=== PATIENT | male | born 1965 | race Caucasian/White ===

== ENCOUNTER → 2017-04-28 | Outpatient (CLI) | payer OTHER ==
--- NOTE | 2017-04-28 12:30 | DIAGNOSTIC IMAGING REPORT ---
EXTREMITY NONVASCULAR LIMITED CLINICAL HISTORY: 51 years-old Male presenting with LEFT GROIN PAIN. TECHNIQUE: Real-time grayscale ultrasound imaging of the left groin was performed. COMPARISON: None. FINDINGS: Apparent isoechoic soft tissue in the region of the left inguinal canal measuring 8 mm in thickness. Upon compression, this abnormality appear to retract into the peritoneal cavity. No surrounding fluid or adjacent bowel. Few regional benign appearing lymph nodes. IMPRESSION: 1. Possible small fat-containing left inguinal hernia. Electronically signed by: Yoni Wong M.D. 04/28/2017 12:28 PM Dictated Date/Time: 04/28/2017 12:26 PM
== END | disposition home or self-care (01) ==
LOC: C.ULTR 12:04
PROVIDERS: ATTEND Family Medicine
DX: R10.30 Lower abdominal pain, unspecified (principal)

== ENCOUNTER 2020-12-24 05:10 | Observation (INO) ==
--- NOTE | 2020-12-04 10:15 | PAT Medication Instructions ---
Medication Instructions Date of Service December 04, 2020 Home Medications allopurinol 100 mg PO QAM diclofenac sodium 75 mg PO BID PRN multivitamin 1 tab PO QAM ASK your surgeon for instructions diclofenac sodium 75 mg PO BID PRN DO NOT take the morning of surgery multivitamin 1 tab PO QAM Take morning of surgery With a small sip of water, OTHERWISE NOTHING TO EAT OR DRINK AFTER MIDNIGHT: allopurinol 100 mg PO QAM Other Notes If you have any questions please call us at [phone] or [phone] or [phone] or [phone]
--- NOTE | 2020-12-04 15:23 | Anesthesiology Consultation ---
Date of Service December 04, 2020 Assessment & Plan (1) Encounter for pre-operative examination: COVID Status: As of 12/04 assessment, patient denies travel to endemic area, known exposure/sick contacts, or symptoms of COVID19. Patient instructed that they and their household members must follow strict social distancing guidelines, wear a mask in public and avoid travel/events/gatherings for 14 days prior to surgery. Preoperative COVID19 testing to be completed prior to surgery per surgeon's arrangements (12/17). Patient made aware to self-isolate as much as possible between COVID testing and surgery. Chart Review Chart Review: Acceptable Risk for Surgery (pending surgeon ordered pcp clearance) and Patient seen in Pre Admission Testing Teaching & Discussion Instructed NPO after midnight before surgery, except medications with 15 cc of water. Medication instructions provided according to the PAT guidelines. History Surgery Operation Date: 12/24/20 07:15 Proposed Procedures p Right Total Hip Arthroplasty - Yoni Florian MD Height/Weight Height: 6 ft 1 in Weight: 91.5 kg Allergies Allergy/AdvReac Type Severity Reaction Status Date / Time No Known Allergies Allergy Unverified 09/28/20 11:44 Medications Home Medications Medication Instructions Recorded Confirmed Last Taken allopurinol 100 mg PO QAM 09/28/20 11/24/20 Unknown diclofenac sodium 75 mg PO BID PRN 09/28/20 11/24/20 Unknown multivitamin 1 tab PO QAM 09/28/20 11/24/20 Unknown Past Medical History Medical History Hx of gout Osteoarthritis Exercise / Class Metabolic Activity II 4-5 Yardwork/Stairs/Walk up hill Past Family History Family History Other No family history of adverse response to anesthesia Past Surgical History Surgical History History of colonoscopy History of open reduction and internal fixation (ORIF) procedure right ankle x2 History of reduction of open fracture left thumb Past Anesthesia History No Hx of Anesthesia Complications and No Family Hx of Anesthesia Complications History of PONV No Hx of PONV and No Hx of Motion Sickness Social History Smoking Status: Never smoker tobacco type: smokeless tobacco Do You Dip or Chew Tobacco: Yes (1 can/1 week (advised)) Hx Alcohol Use: Yes Alcohol type: beer and wine alcohol intake frequency: 0-2 drinks per day (depends on the day, sometimes 5 drinks sometimes none) Hx Substance Use: No substance use type: does not use Review of Systems Pt denies any recent chest pain, shortness of breath, palpitations, cough, fever, URI, or uncontrolled acid reflux. Physical Exam Vital Signs BP: 149/95 P: 91bpm SPO2: 98% RA T: 98.9 F R: 15 ENMT Mouth: no dental restorations, no chipped teeth and no loose teeth Thyromental Distance: > or= 3.5 Finger Breadths (3.5) Mallampati Class: IV Neck + facial hair (short goatee); neck extension not limited Respiratory normal respiratory effort, lungs clear to auscultation Cardiovascular RRR, no murmur, no edema Testing Laboratory Results Blood Type O Negative 12/04/20 15:41 Antibody Screen NEGATIVE 12/04/20 15:41 12/04/20 WBC: 8.80 H/H: 15.5/42.7 PLATELETS: 170 SODIUM: 134 POTASSIUM: 4.1 CHLORIDE: 101 CO2: 27 BUN: 9 CREATININE: 0.95 GLUCOSE: 96 PT: 10.2 INR: 1.0 A1C: 5.2% UA: WNL Electrocardiogram Date: 12/04/20 Findings: + NSR @ (88bpm) RBBB.
--- NOTE | 2020-12-07 14:15 | History & Physical Report ---
Date of Service December 07, 2020 Assessment & Plan Admission and Anticipated Discharge Date Admission Date: PRE-OP Diagnosis: Right hip osteoarthritis Planned Procedure: Right total hip arthroplasty Plan: Patient is scheduled to undergo this procedure at the [facility] on December 24, [address] Yoni Florian. Risks and complications of the procedure such as: Infection, bleeding, pain, scarring, nerve blood vessel damage, weakness, wound problems, stiffness, incomplete relief of symptoms, hardware failure, hardware loosening, wear, fracture, tendon or ligament injury, dislocation, leg length inequality, blood clots, embolism, heart attack, stroke and were explained to the patient at his visit on December [address] Florian. Informed consent from procedure was obtained. Patient also understands risks of proceeding with surgical intervention during the COVID-19 pandemic. Currently he is asymptomatic and understands that he will need to be tested 7 days prior to the surgery. We will need to obtain preoperative medical clearance from the patient's primary care provider Dr. Jerez. Patient states he has an appointment with him on December 07. Patient is scheduled to meet with anesthesia at the hospital today, and while there he will obtain a CBC with differential, complete metabolic panel, PT/INR, blood type and screen, urinalysis, urine culture and sensitivity, EKG, hemoglobin A1c and a nasal culture for MRSA. Advised the patient that he will be provided with prescriptions for a pain relieving agent, and anti-inflammatory and a blood thinning products upon discharge from the hospital. During today's visit we discussed discharge planning, use of antibiotics after joint replacement surgery, lectures offered by [facility] via Zoom in regards to joint replacement, items that he will need to purchase prior to the procedure such as a hip kit, raised toilet seat and a walker. Patient states that he has all of these things because one of his friends recently underwent a hip replacement surgery and gave him all of his stuff. I provided the patient with paperwork to obtain a handicap placard for his vehicle. He states that he plans on doing in-home physical therapy for the first 2 weeks postoperatively and then will begin outpatient physical therapy after his 2-week postoperative follow-up. No follow-up was scheduled for January 08 at 1 PM with myself. Patient verbalized understanding of all information provided during today's visit. He thanks for the care that he has received. Patient states he has questions or concerns should arise prior to his surgery, he will contact the clinic. History of Present Illness Chief Complaint: Chief Complaint: Right hip pain Primary Care Provider: Elijah Jerez History of Present Illness (including history relevant to procedure): This 55-year-old male presents the clinic today for his preoperative history and physical. Patient is approximately a 1 year history of significant right-sided hip pain that is affecting his gait. States it initially was not affecting his activities of daily living but now he has difficulty putting on his shoes and socks. States that he used to play hockey on a regular basis but is unable to do so. Patient is failed conservative measures with multiple corticosteroid injections guided by ultrasound, physical therapy, the use of nonsteroidal agents. There is evidence of progression of his right hip arthritis patient is now good candidate for total hip arthroplasty. Review Of Systems: A 14 point review of systems performed is unremarkable except for those things stated in the HPI past medical history. Past Medical History: Problems: Preop testing Arthritis of right hip Gout Procedure History Procedure Procedure Date Comments Right ankle open reduction internal fixation Colonoscopy Allergies and Sensitivities: NKA Social history: Patient states that he consumes approximately 12 alcoholic beverages per week he denies tobacco or illicit drug use. Family history: Heart disease, hypertension and cancer Current Home Meds: (Last Updated 12/07 13:08) acetaminophen (Tylenol) allopurinol ciprofloxacin (Cipro 500 mg oral tablet) 500 mg PO q12h diclofenac (diclofenac sodium 75 mg oral delayed release tablet) 75 mg PO bid PRN: as needed for arthritis ibuprofen (Advil) magnesium salicylate (Doans Pills Extra Strength) multivitamin omega-3 polyunsaturated fatty acids (Fish Oil oral capsule) Allergies Allergy/AdvReac Type Severity Reaction Status Date / Time No Known Allergies Allergy Unverified 09/28/20 11:44 Home Medications Medication Instructions Recorded Confirmed Type allopurinol 100 mg PO QAM 09/28/20 11/24/20 History diclofenac sodium 75 mg PO BID PRN 09/28/20 11/24/20 History multivitamin 1 tab PO QAM 09/28/20 11/24/20 History Past Med/Surg History Medical History Hx of gout Osteoarthritis Surgical History History of colonoscopy History of open reduction and internal fixation (ORIF) procedure right ankle x2 History of reduction of open fracture left thumb Family History Other No family history of adverse response to anesthesia Social History Smoking Status: Never smoker Second Hand Exposure: No; Do You Dip or Chew Tobacco: Yes (1 can/1 week (advised)); Tobacco Cessation Education Requested by Patient: No Hx Alcohol Use: Yes Alcohol type: beer and wine Hx Substance Use: No Preferred Language: Slovak Communication Ability: Effective Editor News Required: No Beliefs That Will Affect Care: None Current Living Situation: Alone Other Information That Helps Us Care for You: No Feels Safe at Home: Yes Safety Concerns: Feels Safe At This Time Assistive Devices: Cane Assistive Devices Comment: cane prn Review of Systems All systems reviewed & are unremarkable except as noted in Subjective Physical Exam Physical Exam: Physical Exam: (relevant to the procedure, including heart and lung evaluation) General: Alert and oriented x3 with proper grooming and hygiene Eyes: Pupils are equal and reactive to light with accommodation. Extraocular movements are intact Throat: Deferred due to COVID-19 precautions Cardiac: Regular rate and rhythm no murmurs or gallops appreciated Lungs: Clear to auscultation throughout with no wheezing, rales or rhonchi Abdomen: Mildly obese, nondistended, nontender with normal active bowel sounds Extremities: Palpation: Tenderness appreciated over greater trochanter, and tenderness upon palpation over medial groin and proximal portion of hip flexor Range of motion: Internal rotation bilaterally to 20 degrees, external rotation to 40 degrees bilaterally Strength: 5/5 with knee flexion/extension, dorsiflexion/plantarflexion, hip flexion, and hip abduction Sensation: Intact over L2, L3, L4, L5, and S1 dermatomes Special tests: Positive FADIR test, positive logroll, negative Lei test,positive Stinchfield test, positive Jimmy test Neuro: Cranial nerves II through XII are intact no motor or sensory deficit Skin: Normal in appearance with no open skin areas or discharge Results & Data ([facility]) Laboratory Results Lab Results 12/04/20 Range/Units 15:41 Blood Type O Negative Antibody Screen NEGATIVE Diagnostic Findings Studies (relevant to the procedure): Results reviewed x-rays done today3 views of the right hip demonstrate intervalloss of the small amount of superior joint space that he had.He is now completely [id number] arthritis with no change in the size of his subchondral cyst.
[2020-12-24] MEDS ORDERED: ROPIVACAINE 0.5% HCL/PF 150 MG, BUPIVACAINE 0.75% MPF 20 ML, EPINEPHrine 0.15 MG, Ketor... INFIL SCH (06:00)
[2020-12-24] MEDS ORDERED: ACETAMINOPHEN 500 MG TAB PO SCH (06:00)
[2020-12-24] MEDS ORDERED: Scopolamine 1 MG TDSY TD SCH (06:00)
[2020-12-24] MEDS ORDERED: CeleBREX 200 MG CAP PO SCH (06:00)
[2020-12-24] MEDS ORDERED: dexAMETHasone 4 MG TAB PO SCH (06:00)
[2020-12-24] MEDS ORDERED: TRANEXAMIC ACID 1,000 MG **IV Intra-op IV SCH (06:00)
[2020-12-24] MEDS ORDERED: TRANEXAMIC ACID 1,000 MG **IV Pre-op IV SCH (06:00)
[2020-12-24] MEDS ORDERED: traMADol HCL 50 MG TABLET PO SCH (06:00)
[2020-12-24] MEDS ORDERED: LR 15ML/HR IV SCH (06:00)
[2020-12-24] MEDS ORDERED: ceFAZolin 2000MG 2,000 MG/15 ML SYR IV SCH (06:00)
[2020-12-24] MEDS ORDERED: LR 60ML/HR IV SCH (06:00)
[2020-12-24] MEDS ORDERED: FAMOTIDINE 20 MG TAB PO SCH (06:00)
[2020-12-24] MEDS ORDERED: METOCLOPRAMIDE HCL 10 MG TABLET PO SCH (06:00)
[2020-12-24] MEDS ORDERED: BUPIVACAINE 0.5 % 5 MG/1 ML PF 10ML VIAL ONE (06:19)
[2020-12-24] MEDS ORDERED: MIDAZOLAM HCL 1 MG/ML 2ML VIAL ONE ×3 (06:36→07:06)
[2020-12-24] MEDS ORDERED: PROPOFOL IV EMULSION 10 MG/ML 20 ML VIAL IV ONE ×2 (06:36→08:57)
[2020-12-24] MEDS ORDERED: LIDOCAINE HCL 2% 2 ML VIAL/AMP(20MG/ML) INFIL ONE (06:36)
[2020-12-24] MEDS ORDERED: fentaNYL citrate 100 MCG/2 ML VIAL ONE (06:37)
--- NOTE | 2020-12-24 06:43 | History & Physical Bridge Note ---
Date of Service December 24, 2020 History & Physical Bridge Note I have examined the patient, reviewed the History & Physical and in the interval since the performance of the History & Physical I have noted the following changes of clinical significance: no changes noted
[2020-12-24] MEDS ORDERED: ATROPINE SULFATE 0.1 MG/ML 10ML SYR IV PRN (06:54)
[2020-12-24] MEDS ORDERED: ONDANSETRON INJ 2 MG/ML 2 ML VIAL IV PRN ×2 (06:54→09:01)
[2020-12-24] MEDS ORDERED: fentaNYL citrate 100 MCG/2 ML VIAL IV PRN (06:54)
[2020-12-24] MEDS ORDERED: ePHEDrine sulfate 50 MG/ML AMP IV PRN (06:54)
[2020-12-24] MEDS ORDERED: HYDROmorphone INJ 2 MG/ML SYR/VIAL IV PRN (06:54)
[2020-12-24] MEDS ORDERED: BACITRACIN INJ 50,000 UNIT VIAL ONE (06:59)
[2020-12-24] MEDS ORDERED: ORTHO JOINT ANESTHETIC ONE (06:59)
--- NOTE | 2020-12-24 08:53 | Operative Report ---
Post Operative Report Pre & Post Diagnosis Operation Date: 12/24/20 07:15 Pre-Op Diagnosis: Right Total Hip Osteoarthritis Post-Op Diagnosis: Right Total Hip Osteoarthritis I identified the patient and participated in the time-out.: Yes Procedure Operation Date: 12/24/20 07:15 Actual Procedures p Right Total Hip Arthroplasty(Right) - Yoni Florian MD Surgeon Yoni Florian MD Manager Cardiovascular SHALINI Schrader PA-C Estimated Blood Loss 100 Findings Consistent with Post-Op Diagnosis Specimens Femoral head Anesthesia Type Spinal MAC Complications none Disposition Accompanied Patient To Recovery: No Disposition: Recovery Room Indications 55-year-old male with right hip arthritis refractory to conservative management. X-rays demonstrate ariq-vy-bcvs arthritis. I had a long discussion with him about the risks and benefits of surgery, alternatives to surgery, and expected outcomes. After reviewing all these elected to proceed with surgery. All questions were answered. Informed consent was signed. Patient does play hockey and what is advised that he should not resume hockey after surgery although he is cleared to ice skate. Description of Procedure Patient was identified in the preoperative holding area and the surgical site, right hip, was marked. A spinal anesthetic was placed, then the patient was brought back to the main operating room, placed in the operating table and moved into the lateral decubitus position. Axillary roll was placed. All bony prominences were padded. Perioperative antibiotics and tranexamic acid 1 gram IV were administered. Operative extremity was prepped and draped in the normal sterile fashion. Prior to incision a multidisciplinary timeout was called. All in the room were in agreement. We began by making an incision for a posterior approach to the hip. We dissected down through subcutaneous tissues to the level of the fascia. The fascia was incised in line with the incision. Charnley bow was placed. The trochanteric bursa was excised. The piriformis and short external rotators were dissected off the posterior aspect of the hip. A box cut was made in the capsule. The femoral head was dislocated. The femoral neck cut was made at our preoperative template. The acetabulum was then exposed. The labrum was sharply excised. Contents of the cotyloid fossa were removed with electrocautery. We then began reaming at a size 8 mm less than our preoperative template. We reamed up by [address] up to a size 60 mm cup. This gave us good bleeding cancellus bone circumferentially. The acetabulum was then irrigated out and dried. The real Brewton Gription cup was then impacted down into position with 45 degrees of lateral opening and 25 degrees of anteversion. A single cancellous bone screw was placed up into the ilium. Excellent fixation was obtained. An Altrx polyethylene liner for a 36 mm femoral head was then impacted into the shell. The locking mechanism was checked to ensure that it had engaged which it had. Next we turned our attention to the femur. The lateral neck was removed with a box osteotome. Intramedullary guide was used followed by the lateralizing reamer. We then reamed up to a size 6 Union stem. We then broached all the way up to a size 6. We began trialing with a high offset neck and a +8.5 head. Hip was reduced. Leg lengths were now symmetric. Preoperatively he was measured to have approximately 1 cm leg length discrepancy shorter on the operative side. The hip was stable in extension and external rotation, and sta ble in the sleeper position. At 90 degrees of hip flexion the hip could be internally rotated 65 degrees before levering out of the cup. I was very happy with the stability exam. Therefore the hip was dislocated and the femoral trial was removed. The femoral canal was irrigated and dried. The real size 6 high offset Union femoral stem was opened up. This was impacted down into position. It sat at the same level as the femoral trial. Therefore the 36 mm ceramic femoral head with a +8.5 mm offset was opened up and gently impacted down onto the trunnion. The hip was atraumatically reduced. Another 1 gram of IV tranexamic acid was started prior to closure. The wound was irrigated out with sterile Betadine solution. The periarticular injection cocktail was then placed. The short external rotators, piriformis, and posterior capsule were repaired through drill holes in the greater trochanter using #2 Vicryl. The fascia was run with a looped #1 PDS. The subcutaneous layer was closed with #1 PDS. The dermal layer was closed with 2-0 Vicryl. Zip line was used for the skin followed by a Silverlon dressing. A compressive dressing was then placed. The patient was then rolled supine. Leg lengths were rechecked and were symmetric. An abduction pillow was placed. Sedation was lifted and the patient was transferred to recovery room in stable condition. Summary of implants: Depuy Brewton Gription Acetabular Shell Sector Cup, 60 mm outer diameter Brewton Cancellous bone screw, 6.5 x 35 mm Brewton Altrx Polyethylene Acetabular Liner, Neutral, with a 36 mm inner diam eter DePuy Union Femoral stem with Porocoat, 12/14 taper, size 6 high offset 36 mm ceramic femoral head with +8.5 offset Postoperative course: Patient will be admitted to the hospital from the recovery room. Patient will be weightbearing as tolerated with posterior hip precautions. Aspirin for DVT prophylaxis I attest to the content of the Intraoperative Record and any orders documented therein. Any exceptions are noted below.
[2020-12-24] MEDS ORDERED: METOCLOPRAMIDE HCL INJ 5 MG/ML 2 ML VIAL IV PRN (09:01)
[2020-12-24] MEDS ORDERED: diphenhydrAMINE 50 MG/ML VIAL IV PRN (09:01)
[2020-12-24] MEDS ORDERED: bisacodyL 10 MG SUPP PR PRN (09:01)
[2020-12-24] MEDS ORDERED: MAGNESIUM HYDROXIDE SUSP 30 ML UDC PO PRN (09:01)
[2020-12-24] MEDS ORDERED: HYDROmorphone INJ 0.5 MG/0.5 ML SYR IV PRN (09:01)
[2020-12-24] MEDS ORDERED: ALUMINUM/MAGNESIUM SUSP 30 ML UDC PO PRN (09:01)
[2020-12-24] MEDS ORDERED: TAMSULOSIN HCL 0.4 MG CAP PO PRN (09:01)
[2020-12-24] MEDS ORDERED: NALOXONE HCL 0.4 MG/1 ML VIAL/CARP IV PRN (09:01)
--- NOTE | 2020-12-24 09:01 | Operative Report ---
Post Operative Report Pre & Post Diagnosis Operation Date: 12/24/20 07:15 Pre-Op Diagnosis: Right Total Hip Osteoarthritis Post-Op Diagnosis: Right Total Hip Osteoarthritis I identified the patient and participated in the time-out.: Yes Procedure Operation Date: 12/24/20 07:15 Actual Procedures p Right Total Hip Arthroplasty(Right) - Yoni Florian MD Surgeon Yoni Florian MD Nuclear Physicist SHALINI Schrader PA-C Estimated Blood Loss 100 Findings Consistent with Post-Op Diagnosis Specimens Femoral Head Complications none Disposition Accompanied Patient To Recovery: Yes Disposition: Recovery Room Description of Procedure I was present during the entire case assisting with positioning, prepping, draping, wound retraction, wound closure, dressing and abduction pillow placement. No fellow present. Please see Dr. Florian procedure note for specifics of the case. I attest to the content of the Intraoperative Record and any orders documented therein. Any exceptions are noted below.
[2020-12-24] MEDS ORDERED: DICLOFENAC SODIUM 75 MG TABCR PO PRN (09:04)
--- NOTE | 2020-12-24 09:25 | XRay Report ---
XR pelvis 1-2V routine CLINICAL HISTORY: Post Surgical COMPARISON: Pelvis radiograph December 04, 2020. FINDINGS: Alignment of the total right hip arthroplasty is anatomic. There is no periprosthetic frac ture or unexpected radiopaque foreign body. There is an acetabular screw. IMPRESSION: Expected findings following total right hip arthroplasty. ACT 112: Negative or not required by law. Electronically signed by: Trung Menchaca M.D. 12/24/2020 9:24 AM
--- NOTE | 2020-12-24 09:44 | Anesthesiology Progress Note ---
Date of Service December 24, 2020 Anesthesia Post Procedure Vital Signs Vital Signs: Temp Pulse Pulse Resp BP BP Pulse Ox 12/24/20 09:40 63 16 121/76 97 12/24/20 09:30 87 16 123/75 95 12/24/20 09:20 66 16 124/72 100 12/24/20 09:10 77 16 153/78 H 100 12/24/20 09:01 36.3 C L 69 16 122/83 98 12/24/20 05:38 37.4 C 87 18 150/87 H 100 Pain Intensity Right Hip: Pain Intensity: 6 Transfer of Care Handoff Completed per policy Notes Mental Status: alert / awake / arousable and participated in evaluation Patient Amnestic to Procedure: Yes Nausea / Vomiting: adequately controlled Pain: adequately controlled Airway Patency, RR, SpO2: stable & adequate BP & HR: stable & adequate Hydration State: stable & adequate Neuraxial Anesthesia: was administered and sensory block is resolving Anesthetic Complications: no major complications apparent
[2020-12-24] MEDS ORDERED: ONDANSETRON INJ 2 MG/ML 2 ML VIAL ONE (09:50)
--- NOTE | 2020-12-24 10:54 | Anesthesiology Progress Note ---
Date of Service December 24, 2020 Anesthesia Post Procedure Vital Signs Vital Signs: Temp Pulse Pulse Resp BP BP Pulse Ox 12/24/20 10:45 91 H 16 135/78 100 12/24/20 10:30 18 L 16 123/76 100 12/24/20 10:15 87 21 130/85 100 12/24/20 10:00 66 20 131/75 98 12/24/20 09:50 36.4 C L 84 16 120/80 99 12/24/20 09:40 63 16 121/76 97 12/24/20 09:30 87 16 123/75 95 12/24/20 09:20 66 16 124/72 100 12/24/20 09:10 77 16 153/78 H 100 12/24/20 09:01 36.3 C L 69 16 122/83 98 12/24/20 05:38 37.4 C 87 18 150/87 H 100 Pain Intensity Right Hip: Pain Intensity: 6 Transfer of Care Handoff Completed per policy Notes Mental Status: alert / awake / arousable and participated in evaluation Patient Amnestic to Procedure: Yes Nausea / Vomiting: adequately controlled Pain: adequately controlled Airway Patency, RR, SpO2: stable & adequate BP & HR: stable & adequate Hydration State: stable & adequate Anesthetic Complications: no major complications apparent
[2020-12-24] MEDS: ceFAZolin 2000MG 2,000 MG/15 ML SYR IV SCH ×2 (11:23→20:44)
[2020-12-24] MEDS: SODIUM CHLORIDE 0.9% 1000ML 1,000 ML IV SCH ×2 (11:23→22:07)
[2020-12-24] MEDS ORDERED: KETOROLAC 30 MG/ML VIAL ONE (11:31)
[2020-12-24] MEDS: KETOROLAC TROMETHAMINE 15 MG/ML VIAL IV SCH ×2 (11:33→17:48)
[2020-12-24] MEDS: ACETAMINOPHEN 500 MG TAB PO SCH ×2 (14:23→21:19)
[2020-12-24] MEDS ORDERED: TRANEXAMIC ACID / 0.7% NACL 1,000 MG/100 ML BAG IV SCH (15:00)
[2020-12-24] MEDS: Scopolamine CHECK PATCH PLACEMENT SCH (15:16)
[2020-12-24] MEDS: oxyCODONE HCL IR 5 MG TAB (IMMEDIATE RELEASE) PO PRN ×2 (16:18→20:28)
[2020-12-24] MEDS: DOCUSATE SODIUM 100 MG CAP PO SCH (20:27)
[2020-12-24] MEDS: ASPIRIN 81 MG ECTAB PO SCH (20:27)
[2020-12-24] MEDS ORDERED: SENNA 8.6 MG TAB PO SCH (21:00)
[2020-12-25] MEDS: KETOROLAC TROMETHAMINE 15 MG/ML VIAL IV SCH ×2 (00:04→05:51)
[2020-12-25] MEDS: Scopolamine CHECK PATCH PLACEMENT SCH ×2 (00:05→08:35)
[2020-12-25] MEDS: oxyCODONE HCL IR 5 MG TAB (IMMEDIATE RELEASE) PO PRN ×3 (02:13→11:07)
[2020-12-25] MEDS: ACETAMINOPHEN 500 MG TAB PO SCH (05:51)
[2020-12-25 05:57] LABS: Basophils # (auto) 0.02 K/uL (0-0.2); Basophils % (auto) 0.1 %; Eosinophils # (auto) 0.03 K/uL (0-0.5); Eosinophils % (auto) 0.2 %; Hematocrit (blood only) 29.3 % (42-52); Hemoglobin 10.4 g/dL (14.0-18.0); Immature Granulocytes # (auto) 0.03 K/uL (0.00-0.02); Immature Granulocytes % (auto) 0.2 %; Lymphocytes # (auto) 1.23 K/uL (1.2-3.4); Mean Corpuscular Hgb Conc 35.5 g/dL (32-36); Mean Corpuscular Volume 95.8 fL (80-100); Mean Platelet Volume 8.2 fL (7.4-10.4); Monocytes # (auto) 0.95 K/uL (0.11-0.59); Monocytes % (auto) 6.9 %; Neutrophils # (auto) 11.43 K/uL (1.4-6.5); Neutrophils % (auto) 83.6 %; Platelet Count 307 K/uL (130-400); RDW Coefficient of Variation 12.5 % (11.5-14.5); RDW Standard Deviation 43.1 fL (36.4-46.3); Red Blood Count 3.06 M/uL (4.7-6.1); White Blood Count 13.69 K/uL (4.8-10.8)
[2020-12-25 06:30] LABS: BUN Creatinine Ratio 16.6 (10-20); Calcium 8.3 mg/dl (8.5-10.1); Creatinine Clr Calc Pharmacy 138.7 ml/min; Est GFR (African American) 124.6; Est GFR (Non-African American) 107.5; Potassium 4.3 mmol/L (3.5-5.1)
[2020-12-25] MEDS ORDERED: dexAMETHasone 4 MG TAB PO SCH (08:00)
[2020-12-25] MEDS: DOCUSATE SODIUM 100 MG CAP PO SCH (08:32)
[2020-12-25] MEDS: ASPIRIN 81 MG ECTAB PO SCH (08:33)
[2020-12-25] MEDS ORDERED: MULTIVITAMIN TAB PO SCH ×2 (09:00)
[2020-12-25] MEDS ORDERED: allopurinoL 100 MG TAB PO SCH (09:00)
--- NOTE | 2020-12-25 10:30 | Orthopedic Progress Note ---
Date of Service December 25, 2020 Assessment & Plan (1) S/P total hip arthroplasty: Weightbearing as tolerated with walker assistance PT/OT Keep Silverlon dressing intact Total hip precautions Abduction pillow use x6 weeks Pain control with p.o. medication DVT prophylaxis with aspirin and SONG stockings Ice with EZ WRAP Discharge home today with in-home therapy with [facility] Follow-up with [facility] orthopedics as previously scheduled With questions contact our clinic at [phone] Admission and Anticipated Discharge Date Admission Date: December 24, 2020 Subjective This 55-year-old male is day 1 status post right total hip arthroplasty. Patient states that he is doing very well. He has completed physical therapy and occupational therapy this morning without difficulty. He states his pain is well controlled with p.o. pain medication. He states that he is ready to go home later this morning. Currently patient denies chest pain, shortness of breath, fever, chills, sweats, lethargy or numbness or tingling in the right lower extremity. Review of Systems Review of Systems: All systems reviewed & are unremarkable except as noted in Subjective Physical Exam Physical Exam: Right hip: Silverlon dressing is clean dry and intact. Patient is able to easily transition from a seated to a standing position. He is able to perform a straight leg raise test. He is able to actively dorsi and plantarflex his foot. He can flex his knee from 0 to 90 degrees. Logroll test is negative. Stinchfield test is negative. Patient does feel a slight twinge of pain with light passive internal and external hip rotation. Patient's calf soft supple nontender to palpation. He is neurovascularly intact in right lower extremity. Quad strength is 4-5. Peripheral pulses are 2+. Capillary fill is less than 2 seconds. Results & Data ([facility]) Vital Signs (Past 12 Hours) Vital Signs Temp Pulse Resp BP Pulse Ox 12/25/20 07:58 36.7 C 83 18 137/80 99 12/25/20 04:18 36.7 C 98 H 18 120/63 96 12/24/20 23:15 36.6 C 78 18 128/79 99 Laboratory Results 12/25/20 12/25/20 Range/Units 05:46 05:46 WBC 13.69 H (4.8-10.8) K/uL RBC 3.06 L (4.7-6.1) M/uL Hgb 10.4 L (14.0-18.0) g/dL Hct 29.3 L (42-52) % MCV 95.8 (80-100) fL MCH 34.0 (25-34) pg MCHC 35.5 (32-36) g/dL RDW Std Deviation 43.1 (36.4-46.3) fL RDW Coeff of Michele 12.5 (11.5-14.5) % Plt Count 307 (130-400) K/uL MPV 8.2 (7.4-10.4) fL Immature Gran % (Auto) 0.2 % Neut % (Auto) 83.6 % Lymph % (Auto) 9.0 % Flagler % (Auto) 6.9 % Eos % (Auto) 0.2 % Baso % (Auto) 0.1 % Neut # (Auto) 11.43 H (1.4-6.5) K/uL Lymph # (Auto) 1.23 (1.2-3.4) K/uL Flagler # (Auto) 0.95 H (0.11-0.59) K/uL Eos # (Auto) 0.03 (0-0.5) K/uL Baso # (Auto) 0.02 (0-0.2) K/uL Immature Gran # (Auto) 0.03 H (0.00-0.02) K/uL Sodium 132 L (136-145) mmol/L Potassium 4.3 (3.5-5.1) mmol/L Chloride 101 (98-107) mmol/L Carbon Dioxide 25 (21-32) mmol/L Anion Gap 6.0 (3-11) BUN 11 (7-18) mg/dl Creatinine 0.68 (0.6-1.4) mg/dl Est Cr Clr Drug Dosing 138.7 ml/min Est GFR ( Amer) 124.6 Est GFR (Non-Af Amer) 107.5 BUN/Creatinine Ratio 16.6 (10-20) Glucose 115 H (70-99) mg/dl Calcium 8.3 L (8.5-10.1) mg/dl
--- NOTE | 2020-12-25 10:55 | Discharge Summary ---
Date of Service December 25, 2020 Admission HPI Per Admitting Provider History of Present Illness (including history relevant to procedure): This 55-year-old male presents the clinic today for his preoperative history and physical. Patient is approximately a 1 year history of significant right-sided hip pain that is affecting his gait. States it initially was not affecting his activities of daily living but now he has difficulty putting on his shoes and socks. States that he used to play hockey on a regular basis but is unable to do so. Patient is failed conservative measures with multiple corticosteroid injections guided by ultrasound, physical therapy, the use of nonsteroidal agents. There is evidence of progression of his right hip arthritis patient is now good candidate for total hip arthroplasty. Review Of Systems: A 14 point review of systems performed is unremarkable except for those things stated in the HPI past medical history. Past Medical History: Problems: Preop testing Arthritis of right hip Gout Procedure History Procedure Procedure Date Comments Right ankle open reduction internal fixation Colonoscopy Allergies and Sensitivities: NKA Social history: Patient states that he consumes approximately 12 alcoholic beverages per week he denies tobacco or illicit drug use. Family history: Heart disease, hypertension and cancer Current Home Meds: (Last Updated 12/07 13:08) acetaminophen (Tylenol) allopurinol ciprofloxacin (Cipro 500 mg oral tablet) 500 mg PO q12h diclofenac (diclofenac sodium 75 mg oral delayed release tablet) 75 mg PO bid PRN: as needed for arthritis ibuprofen (Advil) magnesium salicylate (Doans Pills Extra Strength) multivitamin omega-3 polyunsaturated fatty acids (Fish Oil oral capsule) Admission Exam Per Admitting Provider Physical Exam: (relevant to the procedure, including heart and lung evaluation) General: Alert and oriented x3 with proper grooming and hygiene Eyes: Pupils are equal and reactive to light with accommodation. Extraocular movements are intact Throat: Deferred due to COVID-19 precautions Cardiac: Regular rate and rhythm no murmurs or gallops appreciated Lungs: Clear to auscultation throughout with no wheezing, rales or rhonchi Abdomen: Mildly obese, nondistended, nontender with normal active bowel sounds Extremities: Palpation: Tenderness appreciated over greater trochanter, and tenderness upon palpation over medial groin and proximal portion of hip flexor Range of motion: Internal rotation bilaterally to 20 degrees, external rotation to 40 degrees bilaterally Strength: 5/5 with knee flexion/extension, dorsiflexion/plantarflexion, hip flexion, and hip abduction Sensation: Intact over L2, L3, L4, L5, and S1 dermatomes Special tests: Positive FADIR test, positive logroll, negative Lei test, positive Stinchfield test, positive Jimmy test Neuro: Cranial nerves II through XII are intact no motor or sensory deficit Skin: Normal in appearance with no open skin areas or discharge Principal Diagnosis Right hip osteoarthritis Discharge Exam Right hip: Silverlon dressing is clean dry and intact. Patient is able to easily transition from a seated to a standing position. He is able to perform a straight leg raise test. He is able to actively dorsi and plantarflex his foot. He can flex his knee from 0 to 90 degrees. Logroll test is negative. Stinchfield test is negative. Patient does feel a slight twinge of pain with light passive internal and external hip rotation. Patient's calf soft supple nontender to palpation. He is neurovascularly intact in right lower extremity. Quad strength is 4-5. Peripheral pulses are 2+. Capillary fill is less than 2 seconds. Discharge Data Allergies Allergy/AdvReac Type Severity Reaction Status Date / Time No Known Allergies Allergy Unverified 12/24/20 05:34 Consultations 12/25/20 08:00 Consult Case Management - Discharge Planning Routine Procedures Performed Operation Date: 12/24/20 07:15 Actual Procedures p Right Total Hip Arthroplasty(Right) - Yoni Florian MD Hospital Course (1) S/P total hip arthroplasty: Patient had uneventful overnight stay following his hip replacement. Patient states that he is ready to go home as soon as possible. He is scheduled with [facility] for his in-home rehab for the first 2 weeks postoperatively. They will do their initial assessment on Monday. Weightbearing as tolerated with walker assistance PT/OT Keep Silverlon dressing intact Total hip precautions Abduction pillow use x6 weeks Pain control with p.o. medication DVT prophylaxis with aspirin and SONG stockings Ice with EZ WRAP Discharge home today with in-home therapy with [facility] Follow-up with [facility] orthopedics as previously scheduled With questions contact our clinic at [phone] Total Time Total Time Spent Total Time Spent (In Minutes): 20 minutes Total Time Includes: Examination of the Patient, Discharge Planning, Medication Reconciliation and Communication With Other Providers Discharge Plan Discharge Items Patient Disposition: Home - Home Health Services Reason For Visit: Right Total Hip Osteoarthritis Discharge Diagnosis: Right Hip Osteoarthritis Activity: As commented below Lifting: None Bathing: Keep incision dry Bathing Comment: May Shower tomorrow Sexual Activity: Wait until after follow-up appointment Exercise/Sports: Wait until after follow-up appointment Driving/Machine Use: No driving until cleared by command and control specialist Weightbearing Comment: as tolerated with walker assistance Non-emergency contact: Primary Care Provider Call non-emergency contact if: you have any medication questions, your pain is not controlled, your temperature is above 101.5, your wound has increased drainage and your wound pain has increased Follow-up/Referrals: Elijah Jerez [Primary Care Provider] - Diet: Regular Addtl Attending Provider Instructions: Post-operative Instructions Dear Patient and Family/Friends, Before you are discharged from the hospital, it is important to know what to expect when you get home after surgery. To that end, we have created this sheet of discharge instructions which covers many commonly asked questions. Make sure you go through this sheet in its entirety with your nurse before you are discharged. Please note that we will go over the specifics of your surgery and recovery when you return for your first post-operative visit. Sincerely, Dr. Florian Medication 1. Oxycodone 5 mg: take 1-2 tabs by mouth every 4-6 hours as needed for pain. A prescription for 30 tablets will be sent to your pharmacy. 2. Diclofenac Sodium 75 mg: take 1 tab twice daily for 30 days post operatively. A prescription with 1 refill will be sent to your pharmacy. 3. Aspirin 81 mg: take 1 tab twice daily for 30 days post operatively for blood clot prevention. Please purchase. 4. Extra Strength Tylenol 500 mg: take 2 tabs every 6-8 hours as needed for pain control. Please purchase. Pain Expect to be in a fair amount of pain after surgery. Remember, our goal is not to eliminate your pain, but to make it tolerable. It is a good idea to stay ahead of your pain by taking the medications you were prescribed once you get home. Typically, the pain starts improving 3-7 days after surgery. You should start weaning off the narcotic pain medication (oxycodone, hydrocodone, hydromorphone, morphine) as soon as your pain improves. Please call our office if your pain is not adequately controlled. Ice Ice your operative site at least 5 times a day for 15-30 minutes at a time. Make sure you have a thin cloth between the ice or cooling unit and your skin to prevent bahena bite. This is especially important if you received a nerve block. Continue icing your operative site for the first 5-7 days after surgery, then as needed. Diet/Nausea/Vomiting Start by drinking clear liquids and eating crackers. If you can tolerate this, then you may resume your normal diet. If you feel nauseated or vomit, take Zofran/ondansetron (if prescribed). Please call our office if you have intractable nausea or vomiting, or, if after hours, you may go to the Emergency Room for help. Constipation Constipation is a common side effect of narcotic pain medication. If you have not had a bowel movement within 2 days after surgery, we recommend purchasing an over the counter laxative such as Milk of Magnesia, Dulcolax, or Miralax from a local pharmacy, and taking it as instructed. Call our clinic if any questions. Slings and Braces If you were placed in a sling or brace, it must be worn at all times, including sleep. You may remove your sling or brace for physical therapy, home exercises, and showering. The length of time you will be in your brace and range of motion restrictions depends on what surgery you had; these details will be reviewed at your first post-operative appointment. Nerve block The anesthesia team sometimes places a nerve block to help with post-operative pain control. This results in significant numbness and inability to move the extremity. The nerve block usually wears off in 8-12 hours, but sometimes can last up to 24 hours. Please call our office if you are still unable to move your extremity after 24 hours, unless you received a pain pump to take home. Nerve blocks typically wear off quickly, so start taking pain medication as soon as you start feeling soreness near your surgical site. Weight bearing and Range of Motion. Do not bear any weight through your operative extremity immediately after surgery. If you had upper extremity surgery, do not lift anything with that arm. If you are in a knee brace, keep it locked in place until your follow-up. We will discuss your weight bearing, range of motion, and lifting restrictions in detail at your first post-operative appointment. Continuous Passive Motion (CPM) Machine If you were prescribed a CPM machine, it will start after your first post- operative appointment, at which time we will give you instructions on the range of motion settings and duration of treatment Physical therapy You will be given a prescription for physical therapy or occupational therapy at your first post-operative appointment. Typically, patients start therapy within 1 week of surgery Wound care and showering We will inspect your wound at your first post-operative visit, and may do a dressing change at that time. Most patients will be in a water-proof dressing that is removed 14 days after surgery. It is normal to see some dried blood on the dressing. Do not remove your dressing, paper strips or sutures yourself unless you are given permission. Showering is allowed the day after surgery. Do not scrub or remove any dressings. The wound should not be submerged underwater (i.e. in a bathtub or pool) until 4 weeks after surgery SONG stockings If you were given white stockings, these are to be worn at all times except to shower (on both legs) for the first 2 weeks after surgery. Driving You may not drive while taking narcotic pain medication or while in a cast, splint, sling or brace. You, the patient, need to make the final determination about when you are safe to drive, however, the earliest you may consider driving after surgery is below: Hand/Wrist/Elbow Surgery: 3 days Shoulder Surgery: 2 weeks Hip,/Knee/Ankle Surgery: 4 weeks Fracture repair: 6 weeks Return to Work Your return to work depends on what surgery was done and what type of work you do. Please bring any paperwork your employer needs completed to your first post-operative visit. Also, bring a description of your job duties, as this helps us to understand what risks you may face at work. Travel Avoid long distance travel (greater than 1 hour) in airplanes and cars for the first 6 weeks after surgery. If you must travel, you need to have a Doppler ultrasound done before you travel to rule out a blood clot in your legs. Follow-up You should have a follow-up appointment already scheduled 1-2 days after surgery. If not, please contact our office to make this appointment before you leave the hospital. When to call the office It is normal to have swelling and bruising in the limb that was operated on. This will improve with time. It is also normal to have fevers for the first 2 days after surgery. Reasons you should call your doctor include: Uncontrolled pain; Nausea, vomiting, or constipation that does not improve with medication; Fevers over 101.5, chills, sweats; Drainage or bleeding from the wound; Foul odor; Spreading areas of redness; Any other concerns Pending Studies at Discharge: No Stand-Alone Forms: [facility], Opioid Pain Management Medications and DC Order Prescriptions: New oxycodone 5 mg tablet 5 mg PO Q4H Qty: 30 RF: 0 diclofenac sodium 75 mg tablet,delayed release (DR/EC) 75 mg PO BID 30 Days Qty: 60 RF: 1 Continued multivitamin Tablet 1 tab PO QAM RF: 0 allopurinol 100 mg Tablet 100 mg PO QAM RF: 0 diclofenac sodium 75 mg Tablet,Delayed Release (Dr/Ec) 75 mg PO BID PRN (Reason: Pain) RF: 0 Discharge Orders: Discharge Order (Routine); Ordered 12/25/20 Ordered By: Carmelo Choudhury/Other Patient Handouts: Total Hip Replacement Admission Data Admit Date/Time: 12/24/20 09:01 Attending Provider: Yoni Florian Admit Provider: Yoni Florian Primary Care Provider: Elijah Jerez Other Providers: [facility] Other Interventions: Discharge Summary Assessment (RN) Last Done: 12/25/20 09:08
[2020-12-25] MEDS ORDERED: CeleBREX 200 MG CAP PO SCH (21:00)
== END 2020-12-25 12:00 | disposition home health service (06) ==
LOC: ASU 05:10 → PACUINP 05:10 → 3E 12:28